=== PATIENT | female | born 1960 | race Caucasian/White ===

== ENCOUNTER → 2016-11-19 | Outpatient (CLI) | payer OTHER ==
[2016-11-19 18:04] LABS: BLOOD UREA NITROGEN 13 mg/dL (7-18)
[2016-11-19 18:12] LABS: ASPARTATE AMINO TRANSFERASE 21 U/L (15-37)
== END | disposition home or self-care (01) ==
LOC: LAB 17:30
PROVIDERS: ATTEND Internal Medicine Hematology & Oncology
DX: C18.9 Malignant neoplasm of colon, unspecified (principal)
CPT/HCPCS: 36415; 80053; 82378; 85025

== ENCOUNTER → 2016-11-20 | Outpatient (CLI) | payer OTHER ==
[~2016-11-20] MED LIST: OMNIPAQUE 350 MG/ML, 100ML BOTTLE ONE
== END | disposition home or self-care (01) ==
LOC: CFH 11:04
PROVIDERS: ATTEND Internal Medicine Hematology & Oncology
DX: C18.9 Malignant neoplasm of colon, unspecified (principal); K76.0 Fatty (change of) liver, not elsewhere classified; K80.20 Calculus of gallbladder without cholecystitis without obstruction
CPT/HCPCS: 71260; 74177; Q9967

== ENCOUNTER → 2017-01-07 | Outpatient (CLI) | payer OTHER | END | disposition home or self-care (01) | LOC: LAB 17:38 | PROVIDERS: ATTEND Family Medicine | DX: E78.2 Mixed hyperlipidemia (principal); R73.09 Other abnormal glucose; E02 Subclinical iodine-deficiency hypothyroidism; K80.20 Calculus of gallbladder without cholecystitis without obstruction; K76.0 Fatty (change of) liver, not elsewhere classified; R91.1 Solitary pulmonary nodule; F17.210 Nicotine dependence, cigarettes, uncomplicated; Z85.038 Personal history of other malignant neoplasm of large intestine | CPT/HCPCS: 36415; 83036; 84439; 84443; 84481; 86376 ==

== ENCOUNTER → 2017-05-25 | Outpatient (CLI) | payer OTHER ==
[2017-05-25 17:36] LABS: HEMATOCRIT 46.5 % (34.6-47.8); HEMOGLOBIN 15.4 g/dL (11.7-16.4); WHITE BLOOD COUNT 9.2 x10^3/uL (3.4-10)
[2017-05-25 17:48] LABS: BLOOD UREA NITROGEN 13 mg/dL (7-18)
[2017-05-25 17:53] LABS: ASPARTATE AMINO TRANSFERASE 15 U/L (15-37); CARCINOEMBRYONIC ANTIGEN 4.06 ng/mL (0.0-3.00)
== END | disposition home or self-care (01) ==
LOC: LAB 17:22
PROVIDERS: ATTEND Internal Medicine Hematology & Oncology
DX: C18.9 Malignant neoplasm of colon, unspecified (principal)
CPT/HCPCS: 36415; 80053; 82378; 85025

== ENCOUNTER → 2017-07-28 | Outpatient (CLI) | payer OTHER | END | disposition home or self-care (01) | LOC: CFH 15:07 | DX: Z12.31 Encounter for screening mammogram for malignant neoplasm of breast (principal) | CPT/HCPCS: 77067 ==

== ENCOUNTER → 2017-08-10 | Outpatient (CLI) | payer OTHER | LOC: LAB 17:25 | PROVIDERS: ATTEND Internal Medicine Hematology & Oncology | DX: C18.9 Malignant neoplasm of colon, unspecified (principal) | CPT/HCPCS: 36415; 82378 ==

== ENCOUNTER → 2017-10-08 | Outpatient (CLI) | payer OTHER | END | disposition home or self-care (01) | LOC: CFH 12:23 | DX: M81.0 Age-related osteoporosis without current pathological fracture (principal); E78.00 Pure hypercholesterolemia, unspecified; R74.8 Abnormal levels of other serum enzymes | CPT/HCPCS: 77080 ==

== ENCOUNTER → 2018-01-25 | Outpatient (CLI) | payer OTHER ==
[2018-01-25 17:52] LABS: BASOPHILS # (AUTO) 0.03 x10^3/uL (0-0.1); BASOPHILS % (AUTO) 1 % (0-1); EOSINOPHILS % (AUTO) 3 % (1-7); LYMPHOCYTES # (AUTO) 1.83 x10^3/uL (1-3.4); LYMPHOCYTES % (AUTO) 25 % (22-44); MD NO; MEAN CORPUSCULAR HEMOGLOBIN 30.5 pg (27.0-34.8); MEAN CORPUSCULAR HGB CONC 33.9 g/dL (32.4-35.8); MEAN PLATELET VOLUME 7.9 fL (7.4-10.4); MONOCYTES # (AUTO) 0.49 x10^3/uL (0.2-0.8); MONOCYTES % (AUTO) 7 % (2-9); NEUTROPHILS # (AUTO) 4.77 x10^3/uL (1.8-6.8); NEUTROPHILS % (AUTO) 65 % (42-75); PLATELET COUNT 270 x10^3/uL (130-400); RED BLOOD COUNT 5.03 x10^6/uL (3.82-5.3); RED CELL DISTRIBUTION WIDTH 13.4 % (9.6-15.2)
[2018-01-25 17:56] LABS: ANION GAP 8 mmol/L (5-15); CALCIUM 9.1 mg/dL (8.5-10.1); CHLORIDE 109 mmol/L (98-107); CREATININE 0.99 mg/dL (0.55-1.02)
[2018-01-25 17:57] LABS: ALANINE AMINOTRANSFERASE 35 U/L (12-78); ALBUMIN 3.9 g/dL (3.4-5.0)
[2018-01-25 18:01] LABS: ALKALINE PHOSPHATASE 145 U/L (45-117); BILIRUBIN,TOTAL 0.4 mg/dL (0.2-1.0); TOTAL PROTEIN 7.7 g/dL (6.4-8.2)
== END | disposition home or self-care (01) ==
LOC: LAB 17:29
PROVIDERS: ATTEND Internal Medicine Hematology & Oncology
DX: C18.9 Malignant neoplasm of colon, unspecified (principal)
CPT/HCPCS: 36415; 80053; 82378; 85025

== ENCOUNTER → 2018-01-28 | Outpatient (CLI) | payer OTHER | END | disposition home or self-care (01) | LOC: CFH 08:04 | PROVIDERS: ATTEND Internal Medicine Hematology & Oncology | DX: J43.9 Emphysema, unspecified (principal); K80.20 Calculus of gallbladder without cholecystitis without obstruction; C18.9 Malignant neoplasm of colon, unspecified | CPT/HCPCS: 71260; 74177; Q9967 ==

== ENCOUNTER → 2018-02-23 | Outpatient (CLI) | payer OTHER ==
[2018-02-23 14:32] LABS: BASOPHILS # (AUTO) 0.04 x10^3/uL (0-0.1); BASOPHILS % (AUTO) 1 % (0-1); EOSINOPHILS # (AUTO) 0.21 x10^3/uL (0-0.4); EOSINOPHILS % (AUTO) 3 % (1-7); LYMPHOCYTES # (AUTO) 2.16 x10^3/uL (1-3.4); LYMPHOCYTES % (AUTO) 26 % (22-44); MD NO; MEAN CORPUSCULAR HEMOGLOBIN 30.3 pg (27.0-34.8); MEAN CORPUSCULAR HGB CONC 33.8 g/dL (32.4-35.8); MEAN CORPUSCULAR VOLUME 89.4 fL (80-100); MEAN PLATELET VOLUME 7.8 fL (7.4-10.4); MONOCYTES # (AUTO) 0.52 x10^3/uL (0.2-0.8); MONOCYTES % (AUTO) 6 % (2-9); NEUTROPHILS % (AUTO) 65 % (42-75); PLATELET COUNT 274 x10^3/uL (130-400); RED BLOOD COUNT 5.06 x10^6/uL (3.82-5.3)
[2018-02-23 14:40] LABS: ALANINE AMINOTRANSFERASE 35 U/L (12-78); ANION GAP 6 mmol/L (5-15); CALCIUM 9.3 mg/dL (8.5-10.1); CHLORIDE 109 mmol/L (98-107); CHOLESTEROL, TOTAL 157 mg/dL (140-239); CREATININE 1.01 mg/dL (0.55-1.02)
[2018-02-23 14:50] LABS: ALKALINE PHOSPHATASE 148 U/L (45-117); BILIRUBIN,TOTAL 0.4 mg/dL (0.2-1.0); CHOL/HDL RATIO 2.8; HDL CHOL % 36 % (28-40); HDL CHOLESTEROL (DIRECT) 57 mg/dL (40-60); LDL CHOLESTEROL,CALCULATED 77 mg/dL (54-169); LDL/HDL RATIO 1.4 (0.5-3.0); TOTAL PROTEIN 8.1 g/dL (6.4-8.2); TRIGLYCERIDES 115 mg/dL (50-200); VLDL CHOLESTEROL 23 mg/dL (0-25)
[2018-02-23 15:40] LABS: HEMOGLOBIN A1C 6.1 % (4.2-6.3)
== END | disposition home or self-care (01) ==
LOC: LAB 14:14
PROVIDERS: ATTEND Family Medicine
DX: M81.0 Age-related osteoporosis without current pathological fracture (principal); R73.03 Prediabetes; E78.00 Pure hypercholesterolemia, unspecified; Z85.038 Personal history of other malignant neoplasm of large intestine
CPT/HCPCS: 36415; 80053; 80061; 83036; 84443; 85025

== ENCOUNTER 2018-07-05 17:28 | Outpatient (CLI) | payer OTHER ==
[2018-07-05 18:33] LABS: HEMOGLOBIN A1C 6.1 % (4.2-6.3)
== END 2018-07-05 23:59 | disposition home or self-care (01) ==
LOC: LAB 17:28
DX: E78.00 Pure hypercholesterolemia, unspecified (principal); R73.03 Prediabetes
CPT/HCPCS: 36415; 83036

== ENCOUNTER → 2018-08-07 | Outpatient (CLI) | payer OTHER | END | disposition home or self-care (01) | LOC: LAB 17:23 | PROVIDERS: ATTEND Family Medicine | DX: M81.0 Age-related osteoporosis without current pathological fracture (principal) | CPT/HCPCS: 36415; 82310 ==

== ENCOUNTER → 2018-10-07 | Outpatient (CLI) | payer OTHER | END | disposition home or self-care (01) | LOC: CFH 10:19 | PROVIDERS: ATTEND Family Medicine | DX: Z12.31 Encounter for screening mammogram for malignant neoplasm of breast (principal) | CPT/HCPCS: 77067 ==

== ENCOUNTER 2019-01-03 17:25 | Outpatient (CLI) | payer OTHER | END 2019-01-03 23:59 | disposition home or self-care (01) | LOC: LAB 17:25 | PROVIDERS: ATTEND Internal Medicine Hematology & Oncology | DX: C18.9 Malignant neoplasm of colon, unspecified (principal) | CPT/HCPCS: 36415; 82378 ==

== ENCOUNTER 2019-12-05 17:09 | Outpatient (CLI) | payer OTHER ==
[2019-12-05 17:35] LABS: BASOPHILS # (AUTO) 0.04 x10^3/uL (0-0.1); BASOPHILS % (AUTO) 1 % (0-1); EOSINOPHILS # (AUTO) 0.24 x10^3/uL (0-0.4); EOSINOPHILS % (AUTO) 3 % (1-7); LYMPHOCYTES # (AUTO) 2.23 x10^3/uL (1-3.4); LYMPHOCYTES % (AUTO) 30 % (22-44); MD NO; MEAN CORPUSCULAR HGB CONC 32.9 g/dL (32.4-35.8); MEAN CORPUSCULAR VOLUME 91.3 fL (80-100); MEAN PLATELET VOLUME 7.9 fL (7.4-10.4); MONOCYTES # (AUTO) 0.51 x10^3/uL (0.2-0.8); MONOCYTES % (AUTO) 7 % (2-9); NEUTROPHILS # (AUTO) 4.49 x10^3/uL (1.8-6.8); NEUTROPHILS % (AUTO) 60 % (42-75); PLATELET COUNT 284 x10^3/uL (130-400); RED BLOOD COUNT 4.88 x10^6/uL (3.82-5.3); RED CELL DISTRIBUTION WIDTH 13.6 % (9.6-15.2)
[2019-12-05 17:47] LABS: ALANINE AMINOTRANSFERASE 32 U/L (12-78); ALBUMIN 3.8 g/dL (3.4-5.0); ANION GAP 3 mmol/L (5-15); CHLORIDE 108 mmol/L (98-107); CREATININE 0.94 mg/dL (0.55-1.02)
[2019-12-05 17:51] LABS: ALKALINE PHOSPHATASE 93 U/L (45-117); BILIRUBIN,TOTAL 0.4 mg/dL (0.2-1.0); TOTAL PROTEIN 7.4 g/dL (6.4-8.2)
== END 2019-12-05 23:59 | disposition home or self-care (01) ==
LOC: LAB 17:09
PROVIDERS: ATTEND Internal Medicine Hematology & Oncology
DX: C18.9 Malignant neoplasm of colon, unspecified (principal)
CPT/HCPCS: 36415; 80053; 82378; 85025

== ENCOUNTER → 2020-01-27 | Outpatient (CLI) | payer OTHER ==
[~2020-01-27] MED LIST changes: -OMNIPAQUE 350 MG/ML, 100ML BOTTLE ONE; +OMNIPAQUE 350 MG/ML, 75ML BOTTLE ONE
== END | disposition home or self-care (01) ==
LOC: CFH 09:23
PROVIDERS: ATTEND Internal Medicine Hematology & Oncology
DX: Z12.31 Encounter for screening mammogram for malignant neoplasm of breast (principal); C18.9 Malignant neoplasm of colon, unspecified; K80.20 Calculus of gallbladder without cholecystitis without obstruction
CPT/HCPCS: 71260; 77067; 82565; Q9967

== ENCOUNTER 2020-02-24 11:30 | Outpatient (CLI) | payer OTHER ==
[2020-02-24 13:15] LABS: CHLORIDE 109 mmol/L (98-107)
[2020-02-24 13:36] LABS: ALANINE AMINOTRANSFERASE 31 U/L (12-78); ALBUMIN 3.9 g/dL (3.4-5.0); ALKALINE PHOSPHATASE 97 U/L (45-117); ANION GAP 6 mmol/L (5-15); BILIRUBIN,TOTAL 0.6 mg/dL (0.2-1.0); CALCIUM 9.1 mg/dL (8.5-10.1); CHOL/HDL RATIO 3.5; CHOLESTEROL, TOTAL 169 mg/dL (140-239); CREATININE 0.95 mg/dL (0.55-1.02); HDL CHOL % 28 % (28-40); HDL CHOLESTEROL (DIRECT) 48 mg/dL (40-60); LDL CHOLESTEROL,CALCULATED 96 mg/dL (54-169); TOTAL PROTEIN 7.5 g/dL (6.4-8.2); TRIGLYCERIDES 125 mg/dL (50-200); VLDL CHOLESTEROL 25 mg/dL (0-25)
== END 2020-02-24 23:59 | disposition home or self-care (01) ==
LOC: CFH 11:30
PROVIDERS: ATTEND Family Medicine
DX: E78.00 Pure hypercholesterolemia, unspecified (principal); I10 Essential (primary) hypertension; R73.03 Prediabetes
CPT/HCPCS: 36415; 80053; 80061; 83036